=== PATIENT | female | born 1950 | race Caucasian/White ===

== ENCOUNTER → 2020-05-29 13:25 | Outpatient (CLI) | payer MEDICARE, MEDICAID ==
[2019-12-31 13:52] VITALS: BMI 37.5
[~2020-05-29 13:25] MED LIST: ALEVE220 MG PO; ASPIRIN EC81 M1 PO; BENADRYL25 MG PO; CALTRATE 600 M600 M1; COUMADIN5 MG PO; ELIQUIS2.5 MG PO; FEXOFENADINE H180 MG PO; FUROSEMIDE40 MG PO; HYDROCODON-ACE1 EA10 PO; KEPPRA750 MG PO; LASIX80 MG PO; LOVENOX INJ100 MG/ML SC; NEURONTIN 300300 MG PO; NEURONTIN600 MG PO; PAXIL40 MG PO; POTASSIUM CHLO10 ME1 PO; PRADAXA150 MG PO; PRAVASTATIN SOD10 MG PO; ROBAXIN500 MG PO; VITAMIN D2000 UNIT PO
--- NOTE | 2020-05-29 15:22 | NUR ---
TIMEOUT PERFORMED USING NAME AND . PATIENT ALLERGIC TO BENEDRYL, IODINE,SULFA AND LATEX 15CC'S ISOVUE 200M INJECTED INTO LEFT SHOULDER JOINT
== END | disposition home or self-care (01) ==
LOC: D.RAD 05-22 13:00
PROVIDERS: ATTEND Clinical Nurse Specialist Family Health
DX: M25.512 Pain in left shoulder (principal)